=== PATIENT | male | born 2000 | race Caucasian/White ===

== ENCOUNTER 2018-11-05 20:58 | Emergency (ER) | payer BC, OTHER ==
[2018-11-05] MEDS ORDERED: PROPARACAINE 0.5% OPHTH DROPS 15 ML BTL BOTH EYES STA (21:34)
[2018-11-05] MEDS ORDERED: DIPH,PERTUS(ACELL)TETVAC-LF 0.5 ML VIAL IM ONE (22:05)
[2018-11-05] MEDS ORDERED: ERYTHROMYCIN 5 MG/GM OPHTH OINT 3.5 GM TUBE LEFT EYE STA (22:14)
--- NOTE | 2018-11-05 22:25 | ED ---
General Adult HPI - General Chief complaint: Eye Problems Stated complaint: Swollen eye Time Seen by Provider: 11/05/18 21:34 Source: patient, family, RN notes reviewed Mode of arrival: ambulatory Limitations: no limitations - History of Present Illness Initial comments: 18-year-old male presents to the emergency department for a chief complaint of left eye irritation. 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 Patient states he was wearing eyeglasses for protection at the time. Patient states he washed his eyes out 3 times at the eyewash station. Patient denies any pain in his eye just feels like it is irritated and that he has something in it. Patient denies any visual changes. Patient denies any headaches. Denies any pain with movement of the eye.Patient has no other complaints at this time including shortness of breath, chest pain, abdominal pain, nausea or vomiting, headache, or visual changes. - Related Data Allergies Allergy/AdvReac Type Severity Reaction Status Date / Time amoxicillin Allergy Nausea & Verified 11/05/18 21:20 Vomiting gluten Allergy Nausea & Verified 11/05/18 21:20 Vomiting Milk Containing Products Allergy Nausea & Verified 11/05/18 21:20 [Dairy] Vomiting Review of Systems ROS Statement: Those systems with pertinent positive or pertinent negative responses have been documented in the HPI. ROS Other: All systems not noted in ROS Statement are negative. Past Medical History Past Medical History: No Reported History History of Any Multi-Drug Resistant Organisms: None Reported Additional Past Surgical History / Comment(s): teeth extraction Past Psychological History: No Psychological Hx Reported Smoking Status: Heavy tobacco smoker Past Alcohol Use History: None Reported Past Drug Use History: None Reported General Exam Limitations: no limitations General appearance: alert, in no apparent distress Head exam: Present: atraumatic, normocephalic, normal inspection Eye exam: Present: PERRL, EOMI, conjunctival injection (Minimal conjunctival erythema noted of the left conjunctiva sparing the limbus), other (The eye was stained with erythromycin ointment and visualized using a Angulo lamp and there is a small abrasion noted at about 10:00 in the left eye). Absent: scleral icterus, periorbital swelling (No edema present), periorbital tenderness ENT exam: Present: normal exam, normal oropharynx, mucous membranes moist, TM's normal bilaterally, normal external ear exam Neck exam: Present: normal inspection, full ROM. Absent: tenderness, meningismus, lymphadenopathy Respiratory exam: Present: normal lung sounds bilaterally. Absent: respiratory distress, wheezes, rales, rhonchi, stridor Cardiovascular Exam: Present: regular rate, normal rhythm, normal heart sounds. Absent: systolic murmur, diastolic murmur, rubs, gallop, clicks GI/Abdominal exam: Present: soft, normal bowel sounds. Absent: distended, tenderness, guarding, rebound, rigid Neurological exam: Present: alert, oriented X3, CN II-XII intact Psychiatric exam: Present: normal affect, normal mood Course Vital Signs 11/05/18 21:14 Temperature 98.5 F Pulse Rate 60 Respiratory 18 Rate Blood Pressure 144/78 O2 Sat by Pulse 100 Oximetry Medical Decision Making - Medical Decision Making 18-year-old male presents to the emergency department for a chief complaint of left eye irritation. He denies any pain. Patient was apparently grinding metal at work when he noticed this irritation. Patient did pull a long eyelash out of his eye while here in the emergency department before I saw him. Patient does not have any visual disturbance. Visual acuity 20/10 in bilateral eyes. On exam patient does have some conjunctival injection. No edema. When stained with fluorescein and visualized with the Wood's lamp patient does have small abrasion noted at about 10:00. Likely cause the patient's irritation as I do not see any foreign bodies after both lids are flipped and a thorough inspection of the conjunctiva was completed. At this time patient can follow up with primary care or ophthalmology if needed. However did discuss returning here if he has worsening symptoms. Patient was given erythromycin ointment. I did order a tetanus shot and the patient however he is refusing this. Mother agrees and they do not want this vaccination. They are aware of the risks of tetanus. Disposition Clinical Impression: Corneal abrasion Disposition: HOME SELF-CARE Condition: Good Instructions (If sedation given, give patient instructions): Corneal Abrasion (ED) Additional Instructions: Please apply erythromycin ointment to the left I every 6 hours for 7 days. Please follow-up with primary care or ophthalmology in one to 2 days. Return here to the emergency department if you have any worsening symptoms. Is patient prescribed a controlled substance at d/c from ED?: No Referrals: Roberto Love, [Primary Care Provider] - 1-2 days Jefferson Montiel MD [STAFF PHYSICIAN] - 1-2 days Time of Disposition: 22:24
[2018-11-05 22:27] VITALS: BP 120/59; PULSE 56; RESP 16; TEMP 98.7
== END 2018-11-05 22:31 | disposition home or self-care (01) ==
LOC: EC 20:58
DX: S05.02XA Injury of conjunctiva and corneal abrasion without foreign body, left eye, initial encounter (principal); F17.200 Nicotine dependence, unspecified, uncomplicated; Z88.1 Allergy status to other antibiotic agents; Z91.011 Allergy to milk products; Z91.018 Allergy to other foods; W22.8XXA Striking against or struck by other objects, initial encounter; Y99.0 Civilian activity done for income or pay; Y92.69 Other specified industrial and construction area as the place of occurrence of the external cause
CPT/HCPCS: 99283